=== PATIENT | male | born 1955 | race Caucasian/White ===

== ENCOUNTER 2017-03-25 10:46 | Observation (INO) | payer OTHER ==
[~2017-03-25] VITALS: Ht 167.6 cm; Wt 93.1 kg
[2017-03-25 12:01] LABS: BASOPHIL % 0.1 % (0-2); PLATELET COUNT 226 x10^3mcL (130-400); RED CELL DISTRIBUTION WIDTH 14.7 % (11.5-14.5)
[2017-03-25 12:05] LABS: CALCIUM 8.8 mg/dL (8.5-10.1); CARBON DIOXIDE 28.1 mmol/L (21-32); CHLORIDE SERUM 103 mmol/L (98-107); CREATININE SERUM 1.3 mg/dL (0.7-1.3); GFR1 > 60 mL/min; GLUCOSE SERUM 225 mg/dL (74-106); POTASSIUM SERUM 4.4 mmol/L (3.5-5.1); SODIUM SERUM 139 mmol/L (136-145)
[2017-03-25] MEDS ORDERED: LISINOPRIL10 MG PO (13:40)
[2017-03-25] MEDS ORDERED: METFORMIN500 M1 PO (13:40)
[2017-03-25] MEDS ORDERED: XARELTO10 M1 PO (13:40)
[2017-03-25 15:00] LABS: CHOLESTEROL/HDL RATIO 4.4; PHOSPHOROUS 3.7 mg/dL (2.5-4.9)
[2017-03-25 15:05] LABS: T3 TOTAL 1.17 ng/mL
[2017-03-25 15:09] LABS: FREE T4 1.17 ng/dL (0.76-1.46); FREE THYROXINE INDEX 2.9 ug/dL (1.4-4.5); T4(THYROXINE) 8.2 ug/dL (4.7-13.3)
[2017-03-25 15:13] VITALS: BP 115/67
[2017-03-25] MEDS ORDERED: HCTZ/LISINOPRIL1 TAB PO (15:38)
[2017-03-25 19:31] LABS: microscopic required? YES; urine erythrocyte NEGATIVE (NEGATIVE)
[2017-03-25 19:44] LABS: AMPHETAMINE QUAL UR NONE DETECTED (NEG <=1000)
[2017-03-25 21:24] VITALS: BP 109/62
[2017-03-26 05:59] VITALS: BP 93/57
[2017-03-26 06:34] LABS: BASOPHIL % 0.5 % (0-2); PLATELET COUNT 207 x10^3mcL (130-400)
[2017-03-26 06:39] LABS: RED CELL DISTRIBUTION WIDTH 14.8 % (11.5-14.5)
[2017-03-26 06:44] LABS: CALCIUM 8.3 mg/dL (8.5-10.1); CARBON DIOXIDE 27.6 mmol/L (21-32); CHLORIDE SERUM 107 mmol/L (98-107); CREATININE SERUM 1.3 mg/dL (0.7-1.3); GFR1 > 60 mL/min; GLUCOSE SERUM 99 mg/dL (74-106); MAGNESIUM 2.1 mg/dL (1.8-2.4); PHOSPHOROUS 3.7 mg/dL (2.5-4.9); POTASSIUM SERUM 4.3 mmol/L (3.5-5.1); SODIUM SERUM 141 mmol/L (136-145)
[2017-03-26 08:22] VITALS: BP 110/70
[2017-03-26] MEDS ORDERED: LIPI20 PO (10:25)
[2017-03-26] MEDS ORDERED: MECLIZINE HCL12.5 MG PO (10:27)
[2017-03-26 10:45] VITALS: BP 110/70
[2017-03-26 12:51] VITALS: BP 125/72
== END 2017-03-26 14:35 | disposition home or self-care (01) | DRG 73 ==
LOC: ED 10:46 → DU 13:01
PROVIDERS: Emergency Medicine; ADMIT Family Medicine
DX: G90.9 Disorder of the autonomic nervous system, unspecified (principal); N17.0 Acute kidney failure with tubular necrosis; E11.65 Type 2 diabetes mellitus with hyperglycemia; E11.51 Type 2 diabetes mellitus with diabetic peripheral angiopathy without gangrene; I48.2 Chronic atrial fibrillation; I10 Essential (primary) hypertension; E78.5 Hyperlipidemia, unspecified; E04.1 Nontoxic single thyroid nodule; E66.9 Obesity, unspecified; Z68.33 Body mass index [BMI] 33.0-33.9, adult; Z79.84 Long term (current) use of oral hypoglycemic drugs; Z79.01 Long term (current) use of anticoagulants
CPT/HCPCS: 82962; 83880; 84439; G0378; J2550; J3360; J7030; J8597; Q0092